=== PATIENT | female | born 1955 | race African-American/Black ===

== ENCOUNTER 2017-01-14 16:24 | Inpatient (IN) ==
[2017-01-14 16:37] LABS: URINE CULTURE PL NEEDED? NO
[2017-01-14 16:50] LABS: BILIRUBIN URINE NEGATIVE (NEGATIVE); BLOOD URINE NEGATIVE (NEGATIVE); CLARITY CLEAR (CLEAR); COLOR YELLOW; GLUCOSE URINE NEGATIVE (NEGATIVE); LEUKOCYTES URINE NEGATIVE (NEGATIVE); NITRITE URINE NEGATIVE (NEGATIVE); PROTEIN URINE NEGATIVE (NEGATIVE); UROBILINOGEN URINE NORMAL
[2017-01-14 17:03] LABS: URINE CAST NONE SEEN /LPF; URINE CRYSTAL NONE SEEN /HPF; URINE EPITHELIAL CELLS <10 /HPF (<10); URINE SOURCE CLEAN CATCH
--- NOTE | 2017-01-14 17:36 | Diag Imaging Result Doc PS360 ---
EXAM: FLAT/UPRIGHT ABD/1 VIEW CHEST HISTORY: abd pain/v/d TECHNIQUE: Three views COMPARISON: 11/27/2016 FINDINGS: The lungs are well expanded. The heart is not enlarged. No pneumonia. No free air beneath the diaphragm. There are air distended loops of bowel. No organomegaly. Mild scoliosis. There are several pelvic phleboliths. IMPRESSION: Air distended bowel which is nonspecific but could represent an ileus or partial obstruction. Electronically signed by Babatunde Davis 01/14/2017 5:33 PM
[2017-01-14] MEDS ORDERED: ZOFRAN ODT PO ONE (18:00)
--- NOTE | 2017-01-14 18:09 | PROVIDER DOCUMENTATION ---
HPI-General Adult - General Chief Complaint: N/V/D Stated Complaint: N/V/D Time Seen by Provider: 01/14/17 17:54 Source: patient Allergies/Adverse Reactions: Patient Allergies Allergy/AdvReac Type Severity Reaction Status Date / Time ibuprofen Allergy ITCHING Verified 04/20/16 23:44 Home Medications: Home Medication List Medication Instructions Recorded Confirmed Last Taken Type Aspirin EC 81 mg PO DAILY #30 tablet 11/29/14 01/14/17 04/20/16 Rx Clonazepam [Klonopin] 1 mg PO TID 06/03/15 01/14/17 04/20/16 History Hydrocodone/Acetaminophen [[place] 1 tab PO TID 06/03/15 01/14/17 12/19/15 History 10-325 Tablet] Lisinopril/Hydrochlorothiazide 1 each PO DAILY 12/19/15 01/14/17 04/20/16 History [Lisinopril-Hctz 20-25 mg Tab] Metoprolol [Lopressor] 25 mg PO DAILY 01/14/17 01/14/17 Unknown History Omeprazole [Omeprazole] 1 cap PO DAILY 01/14/17 01/14/17 Unknown History - History of Present Illness -Gen Adult Nature of Presenting Problems: Pt. is 61 yof that presents with c/o of abd pain with N/V/D for two days. Pt. states that she has been trying to deal with it since she has family in for the 15 of January but states today she is just to weak. Pt. story is wandering all over the place and when asked why she came in to the ED she states it was her abd pain. Pt. reports taking multiple OTC medications over the last two days. Location of Pain/Injury: reports: abdomen. denies: none, head, face, mouth, neck, chest, upper extremity, hand(s), back, pelvis, genitalia, lower extremity , feet, upper body, lower body, generalized, other Pain Radiation: reports: no radiation. denies: arm(s), back, buttocks, chest, epigastric, feet, groin, jaw, flank (L), legs (lower), LLQ, LUQ, neck, periumbilical, flank (R), RLQ, RUQ, shoulder(s), scapula, scrotal, sternal notch , suprapubic, legs (upper), urethral, vaginal, other Quality of Pain: reports: aching. denies: burning, cramping, dull, fullness, indigestion, pressure, sharp, stabbing, tearing, throbbing, tightness Severity: reports: mild. denies: moderate, severe Onset/Duration: reports: gradual, 2 days ago Timing: reports: still present. denies: improving, gone now, resolved prior to arrival, intermittent, constant, changing over time, getting worse Context/Activities at Onset: reports: none. denies: recent emotional stress, recent physical stress, recent trauma history, possible bad food, cold exposure , out of country travel Modifying Factors: improves with: nothing Associated Symptoms: reports: diarrhea, nausea, vomiting. denies: denies symptoms, anxiety, arm pain, back/neck pain, chest pain, constipation, cough, diaphoresis, dizziness, EENT symptoms, fatigue, fever/chills, genitourinary problems, headaches, heartburn, joint pain, loss of appetite, malaise, muscle aches, sinus congestion/drainage, rash, seizure, shortness of breath, sensory/ motor loss, pain with inspiration, swelling/mass in abdomen, syncope, weakness, trouble walking, other Similar Symptoms Previously?: Yes Recently seen or treated by another doctor?: No Review of Systems - Adult - REVIEW OF SYSTEMS - ADULT Constitutional: reports: see HPI. denies: chills, fever, fatique Eyes: reports: see HPI. denies: discharge, blurred vision, eye pain Ears, Nose, Mouth & Throat: reports: see HPI. denies: ear pain, nose pain, loose teeth, throat swelling Cardiovascular: reports: see HPI. denies: chest pain, irregular heart rate, palpitations, syncope Respiratory: reports: see HPI. denies: cough, dyspnea on exertion, pleurisy, wheezing Gastrointestinal: reports: see HPI, abdominal pain, diarrhea, nausea, vomiting. denies: constipation, difficulty swallowing Genitourinary: reports: see HPI. denies: dysuria, frequent UTI's, hematuria, hesitency, urinary retention Musculoskeletal: reports: see HPI. denies: bone pain, back pain, joint pain, muscle aches, neck pain Integumentary: reports: see HPI. denies: hives, itching, rash, skin thickening Neurological: reports: see HPI. denies: ataxia, headache/migraines, numbness, seizure, tremors Psychiatric: reports: see HPI. denies: anxiety, depression, insomnia, panic attacks, suicidal thoughts Past History - Adult - PAST MEDICAL HISTORY-ADULT Review of Records: reports: Old Records Reviewed, Nursing Assessment Review, Medications Reviewed, Social history reviewed & non-contributory. Cardiovascular: reports: HTN Respiratory: reports: asthma, COPD Gastrointestinal: reports: GERD Musculoskeletal: reports: arthritis (RA), chronic pain (back), fibromyalgia Neurological: reports: CVA, headaches/migraines, TIA Psychiatric: reports: anxiety, depression Endocrine/Immune: reports: other (hyponatremia) - PRIOR SURGERIES/PROCEDURES Surgical/Procedure History: reports: hysterectomy, BTL - IMMUNIZATION STATUS Childhood Immunizations: See Nurse Assessment Flu Vaccine: See Nurse Assessment - FAMILY HISTORY Family History: reviewed, not pertinent - SOCIAL HISTORY Smoking: quit greater than 1 year Physical Exam-General - PHYSICAL EXAM-ADULT Initial Vital Signs Reviewed: Yes - CONSTITUTIONAL General Appearance: alert, mild distress, obese. negative: thin, anxious, lethargic, slow to respond, obtunded, combative - EYES Eyes: PERRL/EOMI, pink conjunctivae. negative: conjuctival exudate, scleral icterus, subconjunctival hemorrhage - HEAD, EARS, NOSE, MOUTH & THROAT HENMT: normocephalic/atraumatic, moist mucous membranes. negative: angioedema, frontal tenderness, maxillary tenderness - NECK Neck: non-tender, full range of motion, supple, normal inspection. negative: lymphadenopathy, trachial deviation, thyromegaly - RESPIRATORY Respiratory: lungs clear, normal breath sounds. negative: crackles, rales, rhonchi, stridor, wheezing - CARDIOVASCULAR Cardiovascular: normal peripheral pulses, regular rate, rhythm, no edema, no JVD , no murmur. negative: extra beats, friction rub, irregularly irregular - GASTROINTESTINAL (ABDOMEN) Abdominal Exam: normal bowel sounds, non tender, soft. negative: distended, guarding, rigid, rebound, tenderness, hernia, mass - LYMPHATIC Lymphatic: no adenopathy. negative: axilla node tender, cervical node tenderness - MUSCULOSKELETAL Back Exam: normal inspection, no CVA tenderness, no vertebral tenderness. negative: ecchymosis, swelling, vertebral tenderness Extremity: normal range of motion, non-tender, normal gait, normal inspection. negative: deformity, erythema, inflammation, swelling, tenderness Peripheral Pulses: radial (R): 2+, radial (L): 2+ - SKIN Integumentary: normal color, normal turgor, warm/dry. negative: cyanosis, diaphoresis, ecchymosis, erythema, jaundice, mottled, pallor, petechiae, purpura , rash, swelling, tenderness - NEUROLOGIC Neurologic: grossly normal, no motor/sensory deficits. negative: aphasia, facial droop, focal weakness, motor weakness, sensory deficit - PSYCHIATRIC Psych/Mental Status: normal mood/affect, normal thought content, normal thought process, oriented x 3. negative: anxious, paranoid, tearful Progress - PLAN OF CARE/RESULTS Progress/Plan/Lab Results: Vital Signs - 8 hr 01/14/17 16:26 Temperature 98.2 F Pulse Rate 75 Respiratory Rate 20 Blood Pressure 140/75 O2 Sat by Pulse Oximetry 99 Laboratory Results - last 24 hr 01/14/17 16:36 Urine Source CLEAN CATCH Urine Color YELLOW Urine Clarity CLEAR Urine pH 7.0 Ur Specific [place] 1.000 Urine Protein NEGATIVE Urine Ketones NEGATIVE Urine Blood NEGATIVE Urine Nitrite NEGATIVE Urine Bilirubin NEGATIVE Urine Urobilinogen NORMAL Urine Microscopic RBC Not Reportable Urine WBC NEGATIVE Ur Epithelial Cells <10 Urine Crystals NONE SEEN Urine Bacteria NEGATIVE Urine Casts NONE SEEN Urine Yeast NONE SEEN Urine Glucose NEGATIVE Orders Category Date Time Status FLAT/UPRIGHT ABD/1 VIEW CHEST [RAD] Stat Exams 01/14/17 16:30 Completed AMYLASE [CHEM] Stat Lab 01/14/17 17:39 Received CBC WITH ELECTRONIC DIFF [HEME] Stat Lab 01/14/17 17:39 Results COMPREHENSIVE METABOLIC PANEL [CHEM] Stat Lab 01/14/17 17:39 Received LIPASE [CHEM] Stat Lab 01/14/17 17:[address] W/POSS RFLX CULT [URINALYSIS] Stat Lab 01/14/17 16:36 Completed Ondansetron Odt [Zofran Odt] Med 01/14/17 18:00 Discontinued 4 mg PO NOW ONE Discussed results and plan of care with patient. Patient agrees with plan and verbalizes understanding. Result Diagrams: 01/15/17 07:02 01/15/17 07:02 - XRAY 1 XRAY Study: Chest, Abdomen (Air distended bowel which is nonspecific but could represent an ileus or partial obstruction. ([place])) XRAY Interpretation: See note - CONSULTS/PCP/HOSPITALIST Notification #1 *Consult/PCP/Hospitalist*: Dr. Jordan Time Discussed: 19:49 Reason/Comments: Admission Consult Disposition: Will see in ED, Admit Departure - Departure Date of Disposition Decision: 01/14/17 Time of Disposition Decision: 22:00 DIAGNOSIS: Hyponatremia Nausea and vomiting Qualifiers: Vomiting type: unspecified Vomiting Intractability: non-intractable Qualified Code(s): R11.2 - Nausea with vomiting, unspecified Disposition: ADMITTED INPATIENT 09 Certified Medical Emergency: Emergent Condition: Stable - Critical Care Note This patient required my direct & personal management of CC.: No Attestation - Physician/ CHAD Attestation Patient care was provided by Advanced Practice Provider:: Yes Advanced Practice Provider:: Cecil Smith (The physician is on site and available for consultation but did not have face to face contact with the patient. ) Advanced Practice Provider documentation review:: The Mid-level provider documentation, treatment plan and medical decision making was reviewed by the physician who agrees with all treatment and medical decision making by the MLP.
[2017-01-14 18:23] LABS: BASO% 0.1 % (0.0-0.8); EOS% 2.4 % (0.0-10.0); HEMATOCRIT 38.5 % (37.0-47.0); HEMOGLOBIN 14.2 g/dL (12.0-16.0); IMM GRAN# 0.14 X1000 (0.0-0.04); IMM GRAN% 1.7 % (0.0-0.5); LYMPH% 26.7 % (20.5-51.1); MANUAL DIFF NEEDED? NO; MCH 31.9 PG (27-31); MCHC 36.9 g/dL (33-37); MCV 86.5 FL (81-99); MONO# 0.72 X1000 (0.11-0.59); MONO% 8.7 % (1.7-9.3); MPV 13.2 FL (7.4-10.4); NEUT% 60.4 % (42.2-75.2); PLT 164 X1000 (130-400); RBC 4.45 XMIL (4.2-5.4)
[2017-01-14] MEDS ORDERED: NS 1,000 ML IV ONE (18:44)
[2017-01-14 18:45] LABS: AGAP 13; ALBUMIN 4.5 g/dL (3.5-5.0); ALKALINE PHOSPHATASE 191 U/L (32-104); AMYLASE 85 U/L (20-200); BUN 7 mg/dL (8-22); CALCIUM 8.9 mg/dL (8.8-10.2); CHLORIDE 76 mmol/L (98-107); COSMO 220; GOT 26 U/L (10-30); GPT 13 U/L (10-36); LIPASE 43 U/L (13-60); POTASSIUM 3.5 mmol/L (3.5-5.1); SODIUM 109 mmol/L (136-145); TCO2 20 mmol/L (25-35); TOTAL PROTEIN 8.1 g/dL (6.3-8.3)
--- NOTE | 2017-01-14 19:02 | EKG Report ---
Test Performed on : 01/14/2017 6:58:29 PM Test Reason : abnormal labs Blood Pressure : / mmHG Vent. Rate : 060 BPM Atrial Rate : 060 BPM P-R Int : 188 ms QRS Dur : 080 ms QT Int : 424 ms P-R-T Axes : 058 076 058 degrees QTc Int : 424 ms Normal sinus rhythm. Septal infarct , age undetermined Abnormal ECG When compared with ECG of 27-NOV-2016 13:10, No significant change was found Unconfirmed Result
[2017-01-14] MEDS ORDERED: DUONEB (A & A) INH ONE (19:15)
--- NOTE | 2017-01-14 19:53 | Diag Imaging Result Doc PS360 ---
EXAM: CT ABD/PELVIS W/ IV CONT ONLY HISTORY: abd pain TECHNIQUE: Dose reduction protocol COMPARISON: None. FINDINGS: No calcified gallstones or adjacent inflammation. Normal liver, spleen, pancreas, and adrenal glands. Normal enhancement of the kidneys. No hydronephrosis. No aortic aneurysm. Moderate atherosclerosis. No bowel obstruction. There are scattered diverticula primarily in the descending and sigmoid colon. Normal appendix. No abscess. Urinary bladder is distended and appears normal. Uterus has been removed. No pelvic mass. IMPRESSION: 1.Hysterectomy 2.Diverticulosis Electronically signed by Babatunde Davis 01/14/2017 7:51 PM
[2017-01-14] MEDS ORDERED: ZOFRAN IV PRN (20:03)
[2017-01-14] MEDS ORDERED: TYLENOL PO PRN (20:03)
--- NOTE | 2017-01-14 20:05 | ED EKG INTERP ---
This chart was entered by Tara Zhong Scribe, acting as scribe for Mesfin Springer MD. EKG Interpretation - EKG Time of EKG reading by physician:: 18:58 EKG Read and Signed by:: Mesfin Springer EKG Interpretation (*Must complete 3 of following elements*): Abnormal Rate: 60 Rhythm: NSR Comments: septal infarct, age undetermined This chart was documented by the indicated scribe, (Tara Zhong Scribe) and accurately reflects the services I performed and decisions made by me, Mesfin Springer MD, as attested by the provider's signature.
[2017-01-14] MEDS ORDERED: NORCO-10 PO ONE (21:28)
[2017-01-14] MEDS ORDERED: ROBITUSSIN PO PRN (21:28)
[2017-01-14] MEDS: ROBITUSSIN PO PRN (22:13)
--- NOTE | 2017-01-15 01:35 | EKG Report ---
Test Performed on : 01/14/2017 9:14:27 PM Test Reason : CP Blood Pressure : / mmHG Vent. Rate : 066 BPM Atrial Rate : 066 BPM P-R Int : 198 ms QRS Dur : 082 ms QT Int : 414 ms P-R-T Axes : 064 058 059 degrees QTc Int : 434 ms Normal sinus rhythm. Possible Left atrial enlargement Borderline ECG When compared with ECG of 14-JAN-2017 18:58, (Unconfirmed) No significant change was found Confirmed by Mesfin Springer MD ([id number]) on 02/11/2017 10:04:07 PM
[2017-01-15] MEDS: PRILOSEC PO SCH (06:22)
[2017-01-15 07:13] LABS: HEMATOCRIT 38.3 % (37.0-47.0); HEMOGLOBIN 13.8 g/dL (12.0-16.0); MCH 31.7 PG (27-31); PLT 85 X1000 (130-400); RBC 4.35 XMIL (4.2-5.4)
[2017-01-15 07:28] LABS: AGAP 12; ALBUMIN 4.3 g/dL (3.5-5.0); ALKALINE PHOSPHATASE 173 U/L (32-104); BUN 6 mg/dL (8-22); CALCIUM 9.2 mg/dL (8.8-10.2); CHLORIDE 90 mmol/L (98-107); COSMO 243; GOT 23 U/L (10-30); GPT 12 U/L (10-36); SODIUM 122 mmol/L (136-145); TCO2 20 mmol/L (25-35); TOTAL PROTEIN 7.9 g/dL (6.3-8.3)
[2017-01-15] MEDS: ROBITUSSIN PO PRN (07:40)
[2017-01-15] MEDS: DUONEB (A & A) INH PRN (07:59)
[2017-01-15] MEDS: LOPRESSOR PO SCH (08:32)
[2017-01-15] MEDS: KLONOPIN PO SCH ×3 (08:32→17:06)
[2017-01-15] MEDS: PRINIVIL PO SCH (08:32)
[2017-01-15] MEDS: ASPIRIN EC PO SCH (08:32)
[2017-01-15] MEDS: NORCO-10 PO SCH ×3 (08:33→17:06)
[2017-01-15] MEDS ORDERED: NON-FORMULARY MED (Lisinopril/Hydrochlorothiazide [Lisinopril-Hctz 20-25 Mg Tab] 1 EACH) PO SCH (09:00)
[2017-01-15] MEDS ORDERED: HYDROCHLOROTHIAZIDE PO SCH (09:00)
--- NOTE | 2017-01-15 11:14 | HISTORY AND PHYSICAL ---
PRIMARY CARE PHYSICIAN: Dr. Mazin Bergeron. CHIEF COMPLAINT: Some abdominal pain, nausea, vomiting, and diarrhea for 2 days that had progressively worsened. HISTORY OF PRESENTING ILLNESS: This is a 61-year-old female who presents to [facility] ER with complaints of generalized abdominal pain, nausea, vomiting, and diarrhea for 2 days that has progressively worsened, feeling weak. States that she has been drinking approximately 1 gallon of water a day. Workup in the ER showed a sodium of 109 with a chloride of 76. Her BUN and creatinine were low at 7 and 0.9. She was alert and oriented x3. Abdomen x-ray was done in the ER, showed air distended bowel which was nonspecific, but could represent an ileus or partial obstruction, so we obtained an abdomen and pelvis CT that showed no bowel obstruction and only an impression of diverticulosis, and so she was admitted for further evaluation and treatment. PAST MEDICAL HISTORY: Hypertension, COPD, GERD, asthma, rheumatoid arthritis, chronic back pain, fibromyalgia, CVA, anxiety, depression, and hyponatremia. PAST SURGICAL HISTORY: Hysterectomy and a bilateral tubal ligation. FAMILY HISTORY: Noncontributory. SOCIAL HISTORY: She currently lives alone. Denied any tobacco, alcohol, or illicit drug use. ALLERGIES: Ibuprofen. HOME MEDICATIONS: She takes aspirin 81 mg p.o. daily, Klonopin 1 mg p.o. t.i.d., [place] 10 one p.o. t.i.d., lisinopril/hydrochlorothiazide 20/25 one p.o. daily, Lopressor 25 mg p.o. daily, and omeprazole 40 mg p.o. daily. LABORATORY DATA: White blood cell count of 8.25, hemoglobin 14.2, hematocrit 38.5, platelets 164,000. Sodium of 109, potassium 3.5, chloride 76, CO2 of 20, BUN of 7, creatinine 0.9, glucose 100. Amylase of 85, lipase 43. Urinalysis was negative. Abdomen x-ray showed air distended bowel, which is nonspecific, but could represent an ileus or partial obstruction, but the CT of the abdomen and pelvis showed no bowel obstruction, and an impression of a hysterectomy and diverticulosis. REVIEW OF SYSTEMS: She denied any fever, chills, blurred vision, dizziness, chest pain, coughing, shortness of breath. She was positive for generalized abdominal pain, nausea, vomiting, diarrhea, generalized weakness. Denied any burning or hurting with urination. PHYSICAL EXAMINATION: VITAL SIGNS: On arrival, she had a temperature of 98.2 degrees, a pulse of 75, respirations 20, blood pressure 140/75, saturating 99% on room air. GENERAL: This is a 61-year-old female who is lying in the bed and answers questions appropriately. HEENT: Normocephalic and atraumatic. Pupils are equal, round, and reactive to light. Extraocular movements are intact. Oropharynx and nares are clear. NECK: Supple. LUNGS: Clear to auscultation bilaterally with equal lung expansion and chest wall movement. HEART: Regular rate and rhythm. No murmurs, rubs, or gallops. ABDOMEN: Soft, nontender, nondistended. Bowel sounds are present x4 quadrants. EXTREMITIES: There is no clubbing, cyanosis, or edema. NEUROLOGICAL: Cranial nerves II through XII are grossly intact. ASSESSMENT: 1. 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 2. Nausea, vomiting. 3. Hypertension. 4. Chronic obstructive pulmonary disease, history of. PLAN: She was admitted, placed on telemetry, placed on a 1.5 L fluid restriction. Continue her home medications as previously identified, and recheck a CBC and a CMP in a.m. Dictated by JANAE Merchant for Jem Jordan MD cc: JANAE Merchant MD Moses Awoniyi, MD
--- NOTE | 2017-01-15 13:39 | PROGRESS NOTE ---
DATE: 01/15/2017 SUBJECTIVE: Today Ms. Mora refers to be doing a lot better. According to her, she has been drinking a lot of water because she has been working on the outside, and she feared that she will be dehydrated. She said at one point, whenever she stood up from sitting position, she would be very dizzy, and having to sit down. OBJECTIVE: Vital signs: Blood pressure is 139/65, pulse of 74, respirations 18, temperature 98.9. General: Ms. Mora is a 61-year-old, female. She is in bed, not seemingly distressed. HEENT: Mucosa is slightly dry, but anicteric and acyanotic. Neck: Supple. Chest: Air entry is bilaterally reduced. There is a diffuse bilateral and expiratory wheezing. Cardiovascular: Regular rate and rhythm. Abdomen: Soft. Extremities: No pedal edema. INTER COM SERVICER: Patient is awake and alert. Oriented. There is no focal neurological deficit. LABORATORY DATA: WBC is 5.59, hemoglobin is 13.8, platelet count of 85. Chemistry is reviewed. Sodium is now 122, potassium is 4.0, chloride is 90, bicarb is 20, creatinine is normal. Alkaline phosphatase is slightly elevated at 173. Calcium is normal. DIAGNOSTIC STUDIES: A CT scan of the abdomen and pelvis was done on presentation which shows hysterectomy and diverticulosis, but no acute abnormality. ASSESSMENT: 1. Hyponatremia. Etiology is unclear. We think it is multifactorial, including psychogenic polydipsia. However, patient is also on hydrochlorothiazide which could potentially also cause hyponatremia in the elderly. Patient also has symptoms that were consistent with possible volume depletion. I saw the urine sodium was 10. We do not have a urine osmolarity. I am going to order one to see if we can do it on the previous urine sample. 2. Chronic obstructive pulmonary disease. Patient does have some wheezing. Will continue with bronchodilator therapy. I do not think she is in obvious exacerbation now. Because of the significant hyponatremia and the fact that patient has had this before on other occasions. We are going to do a CT scan of the lungs to make sure there is no any underlying malignancy that could potentially explain this hyponatremia as well. 3. Nausea and vomiting resolved. 4. Hypertension, stable. 5. Thrombocytopenia. This seems to be recurrent. The patient had at other times the platelets have been low, but have come back to normal. We are going to keep eye on this. If it goes any further down we would do investigations. cc: Claudy Marie MD
--- NOTE | 2017-01-15 16:18 | Diag Imaging Result Doc PS360 ---
EXAM: CT THORAX W/CONTRAST HISTORY: pneumonia/copd/r/o lung mass TECHNIQUE: Dose reduction protocol COMPARISON: 11/30/2012 FINDINGS: No pleural effusions. No cardiomegaly. No thoracic aortic aneurysm or dissection. There are small mediastinal lymph nodes with several calcified subcarinal and left hilar lymph nodes. There are scattered granuloma. Mild emphysematous changes. No consolidation. No bronchiectasis. IMPRESSION: 1.No mass. 2.Emphysema 3.There is evidence of a prior granulomatous infection, but no acute pneumonia. Electronically signed by Babatunde Davis 01/15/2017 4:16 PM
[2017-01-16] MEDS: PRILOSEC PO SCH (06:18)
[2017-01-16 06:34] LABS: BASO% 0.4 % (0.0-0.8); EOS# 0.16 X1000 (0.0-0.7); HEMATOCRIT 40.5 % (37.0-47.0); IMM GRAN# 0.08 X1000 (0.0-0.04); IMM GRAN% 1.5 % (0.0-0.5); LYMPH# 1.92 X1000 (1.2-3.4); LYMPH% 36.4 % (20.5-51.1); MANUAL DIFF NEEDED? YES; MCH 31.5 PG (27-31); MCHC 34.6 g/dL (33-37); MCV 91.2 FL (81-99); MONO# 1.09 X1000 (0.11-0.59); MONO% 20.6 % (1.7-9.3); MPV 13.4 FL (7.4-10.4); NEUT% 38.1 % (42.2-75.2); PLT 138 X1000 (130-400); RBC 4.44 XMIL (4.2-5.4)
[2017-01-16 06:41] LABS: CALCIUM 9.7 mg/dL (8.8-10.2); POTASSIUM 4.7 mmol/L (3.5-5.1)
[2017-01-16 07:52] LABS: LYMPHS 36 % (21-51); MONO 20 % (1-9)
[2017-01-16] MEDS: DUONEB (A & A) INH PRN ×2 (08:12→11:34)
[2017-01-16] MEDS: ASPIRIN EC PO SCH (08:37)
[2017-01-16] MEDS: PRINIVIL PO SCH (08:37)
[2017-01-16] MEDS: LOPRESSOR PO SCH (08:37)
[2017-01-16] MEDS: NORCO-10 PO SCH ×2 (08:37→12:41)
[2017-01-16] MEDS: KLONOPIN PO SCH ×2 (08:37→12:41)
[2017-01-16] MEDS: ROBITUSSIN PO PRN (08:38)
[2017-01-16 14:35] VITALS: BP 168/86
--- NOTE | 2017-01-16 16:13 | DISCHARGE SUMMARY ---
ADMISSION DATE: 01/14/2017 DISCHARGE DATE: 01/16/2017 PRIMARY CARE PHYSICIAN: Mazin Bergeron MD ADMISSION DIAGNOSES: 1. Hyponatremia secondary to psychogenic polydipsia. 2. Nausea and vomiting. 3. Hypertension. 4. Chronic obstructive pulmonary disease, history of. DISCHARGE DIAGNOSES: 1. Hyponatremia multifactorial including psychogenic polydipsia and possibly diuretic use. 2. Chronic obstructive pulmonary disease. 3. Nausea and vomiting, resolved. 4. Hypertension. 5. Thrombocytopenia. ? cyclic thrombocytopenia. Follow up with [facility]. SUMMARY OF FINDINGS: This is a 61-year-old female who presented to the emergency room with complaints of generalized abdominal pain, nausea, vomiting and diarrhea for 2 days that had progressively worsened. Stating that she felt weak, states that she had been drinking approximately a gallon of water a day. Workup in the ER showed a sodium of 109 and a chloride of 76. Her BUN and creatinine were low at 7 and 0.9. She was alert and oriented to person, place, and time. Abdomen x-ray showed air distended as bowel which was nonspecific but could represent an ileus or partial obstruction so a CT of the abdomen was obtained that showed no bowel obstruction and only an impression of diverticulosis. She was admitted and placed on a 1.5 L fluid restriction. Her sodium yesterday was 122. Today it is up to 131 and so it is felt that she can safely be discharged home today. Her platelet count is back up to normal at 138. DISCHARGE MEDICATIONS: Norvasc 5 mg p.o. b.i.d. #60 with no refills. Aspirin 81 mg p.o. daily. Klonopin 1 mg p.o. t.i.d., hydrocodone 10 mg 1 p.o. t.i.d. We will discontinue the lisinopril with hydrochlorothiazide and place just on lisinopril 20 mg p.o. daily #60 with no refills. Lopressor 25 mg p.o. daily. Omeprazole 40 mg p.o. daily. FOLLOWUP: She will need to follow up with her primary care physician in the next 1-2 weeks and call the office for an appointment. DISCHARGE INSTRUCTIONS: All discharge instructions have been reviewed with the patient and she verbalized understanding. TIME SPENT AT DISCHARGE: Thirty-five minutes. Dictated by JANAE Merchant for Claudy Marie MD cc: JANAE Merchant MD Moses Awoniyi, MD [facility]
[2017-01-16] MEDS ORDERED: NORVASC PO SCH (21:00)
== END 2017-01-16 14:45 | disposition home or self-care (01) ==
LOC: P.ED 16:24 → P.MEDSURG 20:16 → SUATTDRO 20:16
PROVIDERS: ATTEND Internal Medicine